=== PATIENT | male | born 1995 | race Caucasian/White ===

== ENCOUNTER 2022-09-09 11:53 | Emergency (ER) | payer MEDICAID ==
[~2022-09-09] VITALS: Ht 177.8 cm; Wt 84.4 kg
[2022-09-09 12:16] VITALS: BP_SYST 148
--- NOTE | 2022-09-09 12:18 | NUR ---
ER at bedside examining patient.
--- NOTE | 2022-09-09 12:25 | NUR ---
Patient BIB self from home. Chief Complaint, chest pain and uri sx. Patient a&ox4 EKG complete. Patient stable and placed on the monitor.
--- NOTE | 2022-09-09 12:33 | NUR ---
Xray at bedside.
--- NOTE | 2022-09-09 12:47 | NUR ---
Covid and Flu swab collected and taken to lab
[2022-09-09 13:33] LABS: BASOPHILS % (AUTO) 0.4 % (0.0-2.0); EOSINOPHILS % (AUTO) 0.2 % (0.0-4.0); HEMATOCRIT 42.7 % (36-54); HEMOGLOBIN 14.1 g/dL (14.0-18.0); LYMPHOCYTES # (AUTO) 0.9 K/uL (1.0-5.5); LYMPHOCYTES % (AUTO) 7.9 % (20.5-51.5); MEAN CORPUSCULAR HEMOGLOBIN 29 pg (27-31); MEAN CORPUSCULAR HGB CONC 33 % (32-36); MEAN CORPUSCULAR VOLUME 87 fL (79.0-98.0); MONOCYTES # (AUTO) 0.4 K/uL (0.0-1.0); MONOCYTES % (AUTO) 3.5 % (1.7-9.3); PLATELET COUNT (AUTO) 226 K/uL (130-430); RED BLOOD CELL COUNT(AUTO) 4.93 MIL/uL (4.2-6.2); RED CELL DISTRIBUTION WIDTH 13.2 % (9.0-15.0); WHITE BLOOD COUNT (AUTO) 11.4 K/uL (4.8-10.8)
[2022-09-09 13:52] LABS: CALCIUM 8.9 mg/dL (8.4-11.0); CREATININE 1.02 mg/dL (0.55-1.30)
[2022-09-09 13:57] LABS: ALBUMIN 4.3 g/dL (3.4-4.8); TOTAL BILIRUBIN 0.6 mg/dL (0.0-1.0)
[2022-09-09] MEDS ORDERED: ALBMDI INH (14:05)
[2022-09-09] MEDS ORDERED: BENZ100C92 PO (14:05)
[2022-09-09] MEDS ORDERED: GUAI-723 PO (14:05)
[2022-09-09] MEDS ORDERED: VIS25 PO (14:05)
--- NOTE | 2022-09-09 15:44 | NUR ---
Patient given written and verbal discharge instructions and verbalizes understanding. ER MD discussed with patient the results and treatment provided. Patient in stable condition. Rx sent to pharmacy on file. Patient educated on pain management and to follow up with PMD. Opportunity for questions provided and answered. Medication side effect fact sheet provided.
== END 2022-09-09 15:44 | disposition home or self-care (01) ==
LOC: SED 11:53
DX: J42 Unspecified chronic bronchitis (principal); F41.9 Anxiety disorder, unspecified; F12.90 Cannabis use, unspecified, uncomplicated; R05.9 Cough, unspecified; R06.02 Shortness of breath; R07.9 Chest pain, unspecified; Z79.899 Other long term (current) drug therapy; Z20.822 Contact with and (suspected) exposure to COVID-19
CPT/HCPCS: 36415; 71045; 80053; 83690; 85025; 99284

== ENCOUNTER 2022-09-20 19:29 | Emergency (ER) | payer MEDICAID ==
[~2022-09-20] VITALS: Ht 177.8 cm; Wt 87.1 kg
[~2022-09-20 19:29] MED LIST: ALBMDI INH; BENZ100C92 PO; GUAI-723 PO; VIS25 PO
[2022-09-20 19:39] VITALS: BP_SYST 128
--- NOTE | 2022-09-20 19:39 | NUR ---
Patient triaged and placed in ER bed 5 for evaluation. Vital signs updated, denied any acute distress at this time. Report given to CELESTINO STOUT for continuity of care. Instructed to notify ED staff for any changes in condition or worsening of symptoms. Patient verbalized understanding.
--- NOTE | 2022-09-20 19:48 | NUR ---
Dr. Roger at bedside examining the patient.
--- NOTE | 2022-09-20 19:50 | NUR ---
Received pt in bed 5, A&OX4, NAD. C/o of anxiety/panic with SOB, but 100% SPO2, also c/o of numbness in fingers and both feet.
--- NOTE | 2022-09-20 19:57 | NUR ---
EKG completed and given to MD for interpretation.
[2022-09-20] MEDS ORDERED: ALPRAZolam 0.25 MG TABLET PO ONE (20:00)
[2022-09-20] MEDS ORDERED: ALPR0.5T PO (20:59)
--- NOTE | 2022-09-20 21:10 | NUR ---
Patient given written and verbal discharge instructions and verbalizes understanding. ER MD Dr. Roger discussed with patient the results and treatment provided. Patient in stable condition. ID arm band removed. Rx of Xanax given. Patient educated on pain management and to follow up with PMD. Pain Scale 0/10. Opportunity for questions provided and answered. Medication side effect fact sheet provided.
[2022-09-20 21:11] VITALS: BP_SYST 133
== END 2022-09-20 21:10 | disposition home or self-care (01) ==
LOC: SED 19:29
DX: F41.9 Anxiety disorder, unspecified (principal); R07.9 Chest pain, unspecified; R06.02 Shortness of breath; Z79.899 Other long term (current) drug therapy
CPT/HCPCS: 71045; 93005; 99283

== ENCOUNTER 2023-11-01 08:23 | Emergency (ER) | payer BC, MEDICAID ==
[~2023-11-01] VITALS: Ht 175.3 cm; Wt 106.6 kg
[~2023-11-01 08:23] MED LIST changes: +ALPR0.5T PO
[2023-11-01 08:28] VITALS: BP_SYST 140; PULSE 103; RESP 17; TEMP 97.1; O2SAT 97
[2023-11-01 09:11] LABS: COVID19 ANTIGEN SOFIA FIA NEGATIVE (NEGATIVE)
[2023-11-01 09:12] LABS: INFLUENZA TYPE A Negative (NEGATIVE); INFLUENZA TYPE B NEGATIVE (NEGATIVE)
[2023-11-01] MEDS: IBUPROFEN 800 MG TABLET PO ONE (09:12)
[2023-11-01] MEDS: ONDANSETRON 4 MG ODT TAB PO ONE (09:12)
[2023-11-01] MEDS ORDERED: AUG875 PO (09:16)
[2023-11-01] MEDS ORDERED: VIS25 PO (09:16)
[2023-11-01] MEDS ORDERED: ONDA-8 TL (09:16)
[2023-11-01 09:33] VITALS: BP_SYST 126; PULSE 82; RESP 16; TEMP 97.1; O2SAT 98
== END 2023-11-01 09:33 | disposition home or self-care (01) ==
LOC: SED 08:23
DX: J32.9 Chronic sinusitis, unspecified (principal); R51.9 Headache, unspecified; Z20.822 Contact with and (suspected) exposure to COVID-19; F17.200 Nicotine dependence, unspecified, uncomplicated; F41.9 Anxiety disorder, unspecified; Z79.899 Other long term (current) drug therapy; Z79.2 Long term (current) use of antibiotics
CPT/HCPCS: 99283; 87426; 36415; 87804 ×2; Q0162